=== PATIENT | male | born 1985 | race Two or more races ===

== ENCOUNTER 2021-07-19 15:04 | Inpatient (IN) | payer OTHER ==
[~2021-07-19] VITALS: Ht 172.7 cm; Wt 94.1 kg
[2021-07-19 15:43] LABS: BASOPHILS ABSOLUTE AUTO 0.04 K/mm3 (0.00-0.23); BASOPHILS PERCENT AUTO 1 % (0-2); EOSINOPHILS ABSOLUTE AUTO 0.01 K/mm3 (0.00-0.68); EOSINOPHILS PERCENT AUTO 0 % (0-6); Hematocrit 41.9 % (37.0-53.0); Hemoglobin 14.3 g/dL (13.5-17.5); IMMATURE GRAN ABSOLUTE AUTO 0.35 K/mm3 (0.00-0.10); IMMATURE GRAN PERCENT AUTO 4 % (0-1); LYMPHOCYTES ABSOLUTE AUTO 0.59 K/mm3 (0.84-5.20); LYMPHOCYTES PERCENT AUTO 7 % (21-46); MONOCYTES ABSOLUTE AUTO 0.47 K/mm3 (0.16-1.47); MONOCYTES PERCENT AUTO 6 % (4-13); Mean Corpuscular HGB 30.4 pg (26.0-34.0); Mean Corpuscular HGB Conc 34.1 g/dL (31.5-36.5); Mean Corpuscular Volume 89 fL (80-100); Mean Platelet Volume 9.1 fL (9.1-12.4); NEUTROPHILS ABSOLUTE AUTO 6.95 K/mm3 (1.96-9.15); NEUTROPHILS PERCENT AUTO 83 % (41-73); Platelet Count 325 K/mm3 (150-400); RDW Coefficient Variation 12.5 % (11.7-14.2); RDW Standard Deviation 40.6 fL (35.1-46.3); Red Blood Cell Count 4.71 M/mm3 (4.30-5.90); White Blood Cell Count 8.41 K/mm3 (4.00-11.30)
[2021-07-19 16:00] LABS: Alanine Aminotransfer (ALT/SGP 41 U/L (12-78); Albumin, Blood 2.2 g/dL (3.4-5.0); Albumin/Globulin Ratio 0.5 (0.8-1.8); Alk Phos 87 U/L (50-136); Anion Gap 6 mmol/L (6-16); Aspartate Aminotrans (AST/SGOT 61 U/L (12-37); Bilirubin, Total 0.8 mg/dL (0.1-1.0); Blood Urea Nitrogen 10 mg/dL (8-24); Bun/Creatinine Ratio 13.2 (12.0-20.0); CO2, Blood 27 mmol/L (21-32); Calcium, Blood 8.3 mg/dL (8.5-10.1); Chloride, Blood 103 mmol/L (98-108); Creatinine, Blood 0.76 mg/dL (0.60-1.20); Globulin, Blood 4.6 g/dL (2.2-4.0); Glomerular Filtration Rate >60 (60-); Glucose, Blood 93 mg/dL (70-99); Potassium, Blood 3.7 mmol/L (3.5-5.5); Sodium, Blood 136 mmol/L (136-145); Total Protein, Blood 6.8 g/dL (6.4-8.2)
[2021-07-19 16:32] LABS: SARS-Cov-2 (COVID-19) PCR, MMC POSITIVE (NEGATIVE)
--- NOTE | 2021-07-20 02:52 | NUR ---
PT IS ON 5L NC WITH SAT OF 83-84, HEAD OF BED ELEVATED, O2 TURNED UP TO 8LNC SAT UP TO 86%. TURNED UP TO 10 L NC SAT UP TO 86%. NO COMP-LAINTS OF SOB, RESPIRATION CURRENTLY AT 20. CALLED RT TO EVAL PATITIENT. PT SWITCHED TO NON REBREATHER WHILE WE AWAIT RT. O2 SAT NOW UP TO 91 %
[2021-07-20 04:39] LABS: BASOPHILS ABSOLUTE AUTO 0.03 K/mm3 (0.00-0.23); BASOPHILS PERCENT AUTO 1 % (0-2); EOSINOPHILS PERCENT AUTO 0 % (0-6); Hematocrit 39.5 % (37.0-53.0); Hemoglobin 13.5 g/dL (13.5-17.5); Mean Corpuscular HGB Conc 34.2 g/dL (31.5-36.5); Mean Corpuscular Volume 88 fL (80-100); Platelet Count 344 K/mm3 (150-400); RDW Coefficient Variation 12.6 % (11.7-14.2); White Blood Cell Count 5.14 K/mm3 (4.00-11.30)
[2021-07-20 04:48] LABS: IMMATURE GRAN ABSOLUTE AUTO 0.25 K/mm3 (0.00-0.10); IMMATURE GRAN PERCENT AUTO 5 % (0-1); LYMPHOCYTES ABSOLUTE AUTO 0.54 K/mm3 (0.84-5.20); LYMPHOCYTES PERCENT AUTO 11 % (21-46); MONOCYTES ABSOLUTE AUTO 0.39 K/mm3 (0.16-1.47); MONOCYTES PERCENT AUTO 8 % (4-13); NEUTROPHILS ABSOLUTE AUTO 3.93 K/mm3 (1.96-9.15); NEUTROPHILS PERCENT AUTO 76 % (41-73)
[2021-07-20 04:56] LABS: Alanine Aminotransfer (ALT/SGP 40 U/L (12-78); Albumin, Blood 1.9 g/dL (3.4-5.0); Albumin/Globulin Ratio 0.4 (0.8-1.8); Alk Phos 88 U/L (50-136); Anion Gap 6 mmol/L (6-16); Aspartate Aminotrans (AST/SGOT 52 U/L (12-37); Bilirubin, Total 0.7 mg/dL (0.1-1.0); Blood Urea Nitrogen 14 mg/dL (8-24); Bun/Creatinine Ratio 17.8 (12.0-20.0); CO2, Blood 26 mmol/L (21-32); Calcium, Blood 8.3 mg/dL (8.5-10.1); Chloride, Blood 107 mmol/L (98-108); Creatinine, Blood 0.79 mg/dL (0.60-1.20); Globulin, Blood 4.4 g/dL (2.2-4.0); Glomerular Filtration Rate >60 (60-); Glucose, Blood 127 mg/dL (70-99); Potassium, Blood 4.3 mmol/L (3.5-5.5); Sodium, Blood 139 mmol/L (136-145); Total Protein, Blood 6.3 g/dL (6.4-8.2)
[2021-07-20 05:50] LABS: BAND PERCENT MAN 2 % (0-8); BASOPHILS PERCENT MAN 0 % (0-2); EOSINOPHILS PERCENT MAN 0 % (0-6); LYMPHOCYTES ABSOLUTE MAN 0.41 K/mm3 (0.84-5.20); LYMPHOCYTES PERCENT MAN 8 % (21-46); MONOCYTES ABSOLUTE MAN 0.15 K/mm3 (0.16-1.47); MONOCYTES PERCENT MAN 3 % (4-13); MYELOCYTE PERCENT MAN 2 % (0-0); NEUTROPHILS ABSOLUTE MAN 4.47 K/mm3 (1.96-9.15); SEG NEUTROPHILS PERCENT MAN 85 % (41-73); TOTAL CELLS COUNTED 100
--- NOTE | 2021-07-20 05:50 | NUR ---
VSS, NO COMPLAINTS OF PAIN. PT IS A+O X 4, ABLE TO VERBALIZE NEEDS. SOB WITH MINIMAL ACTIVITY.PT WAS ON 5L NC. WHEN TECH WAS DOING AM VITALS, LINEN WORKER WAS ALERTED THAT O2 WAS 83%. PT O2 INCREASED TO 10L NC AND LINEN WORKER CALLED RT DEPT. O2 SAT WAS STILL BELOW 90%. INCREASED TO 15L NC WITH O2@ 86 %. PT PLACED ON NON-REABREATHER UNTIL SEEN BY RT. PT PLACED ON AIRVO 30L 70% WITH CONT PULSE OX. NO OTHER ISSUES IDENTIFIED. SAFETY MEAURES IN PLACE WILL CONTINUE TO MONITOR UNTIL REPORT IS GIVEN TO DAY RN
--- NOTE | 2021-07-20 17:08 | NUR ---
PT IS A/OX3, PLEASANT AND COOPERATIVE. THE PT IS SOB WITH MINIMAL ACTIVITY. PT IS ON AIRVO SETTING AT 30/90% SAT'S RANGE FROM 87-94%, THE PT DENIES ANY PAIN AT THIS TIME. PT HAS BEEN IN BED T/O THE FRAN DUER TO HIS SOB. CALL OIGHT IN REACH. WILL CONTINUE TO MONITOR FOR CHANGES
--- NOTE | 2021-07-21 04:29 | NUR ---
SHIFT SUMMARY PT IS A 36 Y/O MALE, ADMITTED FOR PNA R/T COVID-19. HE IS A&O X 4, BEDREST D/T DESATTING WITH ANY ACTIVITY. HE IS ON AIRVO, O2 INCREASED FROM 30L/80% TO 45L/85%, SATTING BETWEEN 89-92% AND DESATS DOWN TO 80-85% WITH ANY EXERTION. ALL OTHER VITALS STABLE. PT DID REPORT ANXIETY AT START OF SHIFT. AFTER INFORMING HOSPITALIST DR RODRIGUEZ, PO ATIVAN ORDERED AND ADMINISTERED. NO C/O ACUTE PAIN OR NAUSEA. NO OTHER ACUTE CHANGES IN PT CONDITION NOTED DURING THE NIGHT. WILL CONTINUE TO MONITOR AND TREAT PER EMAR UNTIL HAND OFF TO DAY SHIFT RN.
--- NOTE | 2021-07-21 17:18 | NUR ---
SHIFT SUMMARY PATIENT DENIES PAIN AND NAUSEA. DYSPNEIC WITH ACTIVITY. AIRVO AT 40L/50% TO MAINTAIN OXYGEN SATURATION ABOVE 90%. PATIENT PRONING WHEN NOT EATING. UP SBA TO BSC/URINAL AT BEDSIDE. PLEASANT AND COOPERATIVE WITH CARE.
--- NOTE | 2021-07-22 03:23 | NUR ---
SHIFT SUMMARY A/OX4, PLEASANT AND COOPERATIVE WITH CARE. CURRENTLY ON AIRVO 40L FIO2 50% SOB WITH EXERTION. CONT. BIOX IN PLACE WITH SATS GREATER THAN 92. ENCOURAGED PRONING T/O THE NIGHT. VSS, NO ACUTE CHANGES AT THIS TIME. BED IN LOWEST POSITION WITH CALL LIGHT IN REACH. WILL CONTINUE TO MONITOR AND REPORT TO ONCOMING RN.
[2021-07-22 04:35] LABS: BASOPHILS ABSOLUTE AUTO 0.04 K/mm3 (0.00-0.23); BASOPHILS PERCENT AUTO 0 % (0-2); EOSINOPHILS ABSOLUTE AUTO 0.01 K/mm3 (0.00-0.68); EOSINOPHILS PERCENT AUTO 0 % (0-6); Hematocrit 40.1 % (37.0-53.0); Hemoglobin 13.6 g/dL (13.5-17.5); Mean Corpuscular HGB Conc 33.9 g/dL (31.5-36.5); Mean Corpuscular Volume 89 fL (80-100); Mean Platelet Volume 8.9 fL (9.1-12.4); NRBC ABSOLUTE 0.02 K/mm3 (0.00-0.02); NRBC Auto 0.2 /100 WBC (0.0-0.2); Platelet Count 332 K/mm3 (150-400); RDW Coefficient Variation 12.4 % (11.7-14.2); RDW Standard Deviation 40.5 fL (35.1-46.3); Red Blood Cell Count 4.53 M/mm3 (4.30-5.90); White Blood Cell Count 10.65 K/mm3 (4.00-11.30)
[2021-07-22 04:36] LABS: IMMATURE GRAN ABSOLUTE AUTO 0.58 K/mm3 (0.00-0.10); IMMATURE GRAN PERCENT AUTO 5 % (0-1); LYMPHOCYTES ABSOLUTE AUTO 1.58 K/mm3 (0.84-5.20); LYMPHOCYTES PERCENT AUTO 15 % (21-46); MONOCYTES ABSOLUTE AUTO 1.06 K/mm3 (0.16-1.47); MONOCYTES PERCENT AUTO 10 % (4-13); NEUTROPHILS ABSOLUTE AUTO 7.38 K/mm3 (1.96-9.15); NEUTROPHILS PERCENT AUTO 69 % (41-73)
[2021-07-22 04:56] LABS: Albumin, Blood 2.1 g/dL (3.4-5.0); Anion Gap 4 mmol/L (6-16); Blood Urea Nitrogen 20 mg/dL (8-24); Bun/Creatinine Ratio 22.6 (12.0-20.0); CO2, Blood 27 mmol/L (21-32); Calcium, Blood 8.3 mg/dL (8.5-10.1); Chloride, Blood 107 mmol/L (98-108); Creatinine, Blood 0.89 mg/dL (0.60-1.20); Glomerular Filtration Rate >60 (60-); Glucose, Blood 98 mg/dL (70-99); Sodium, Blood 138 mmol/L (136-145)
[2021-07-22 05:11] LABS: BAND PERCENT MAN 2 % (0-8); BASOPHILS PERCENT MAN 0 % (0-2); EOSINOPHILS PERCENT MAN 1 % (0-6); LYMPHOCYTES ABSOLUTE MAN 0.95 K/mm3 (0.84-5.20); LYMPHOCYTES PERCENT MAN 9 % (21-46); MONOCYTES ABSOLUTE MAN 0.95 K/mm3 (0.16-1.47); MONOCYTES PERCENT MAN 9 % (4-13); NEUTROPHILS ABSOLUTE MAN 8.62 K/mm3 (1.96-9.15); SEG NEUTROPHILS PERCENT MAN 79 % (41-73); TOTAL CELLS COUNTED 100
[2021-07-22 10:09] LABS: C-REACTIVE PROTEIN, EXT RANGE 3.01 mg/dL (0.000-0.300)
--- NOTE | 2021-07-22 16:57 | NUR ---
SHIFT SUMMARY PT SATING IN THE 90S T/O THE DAY. PRIMARILY ABOVE 94%. REQUIRING THE AIRVO WITH 40L 50%. PT STATES SOB ONLY WITH EXERTION. PT AGREEABLE TO LYING PRONE AND DID SO FOR A FEW HOURS TODAY. PT HAD NOT GOTTEN OUT OF BED TODAY, MOVING INDEPENDENTLY IN BED. PT MOTHER UPDATED TODAY WITH PERMISSION. NO OTHER ACUTE CHANGES IN ASSESSMENT AT THIS TIME. VS REVIEWED. CALL LIGHT IN REACH. DENIES OTHER NEEDS AT THIS TIME. RESTING IN BED, WATCHING TV.
--- NOTE | 2021-07-23 06:14 | NUR ---
SUMMARY NO NEW CHANGES NOTED. PT SLEPT T/O SHIFT. CALL LIGHT IN REQACH.
[2021-07-23 06:29] LABS: BASOPHILS ABSOLUTE AUTO 0.08 K/mm3 (0.00-0.23); BASOPHILS PERCENT AUTO 1 % (0-2); EOSINOPHILS ABSOLUTE AUTO 0.06 K/mm3 (0.00-0.68); EOSINOPHILS PERCENT AUTO 1 % (0-6); Hematocrit 42.4 % (37.0-53.0); Hemoglobin 14.3 g/dL (13.5-17.5); Mean Corpuscular HGB 29.9 pg (26.0-34.0); Mean Corpuscular HGB Conc 33.7 g/dL (31.5-36.5); Mean Corpuscular Volume 89 fL (80-100); Mean Platelet Volume 9.4 fL (9.1-12.4); Platelet Count 377 K/mm3 (150-400); RDW Coefficient Variation 12.2 % (11.7-14.2); RDW Standard Deviation 39.1 fL (35.1-46.3); Red Blood Cell Count 4.79 M/mm3 (4.30-5.90); White Blood Cell Count 9.38 K/mm3 (4.00-11.30)
[2021-07-23 06:53] LABS: IMMATURE GRAN ABSOLUTE AUTO 0.69 K/mm3 (0.00-0.10); IMMATURE GRAN PERCENT AUTO 7 % (0-1); LYMPHOCYTES ABSOLUTE AUTO 2.09 K/mm3 (0.84-5.20); LYMPHOCYTES PERCENT AUTO 22 % (21-46); MONOCYTES ABSOLUTE AUTO 1.09 K/mm3 (0.16-1.47); MONOCYTES PERCENT AUTO 12 % (4-13); NEUTROPHILS ABSOLUTE AUTO 5.37 K/mm3 (1.96-9.15); NEUTROPHILS PERCENT AUTO 57 % (41-73)
[2021-07-23 06:54] LABS: Anion Gap 4 mmol/L (6-16); Blood Urea Nitrogen 19 mg/dL (8-24); Bun/Creatinine Ratio 21.6 (12.0-20.0); CO2, Blood 27 mmol/L (21-32); Calcium, Blood 8.3 mg/dL (8.5-10.1); Chloride, Blood 107 mmol/L (98-108); Creatinine, Blood 0.88 mg/dL (0.60-1.20); Glomerular Filtration Rate >60 (60-); Glucose, Blood 87 mg/dL (70-99); Potassium, Blood 4.1 mmol/L (3.5-5.5); Sodium, Blood 138 mmol/L (136-145)
--- NOTE | 2021-07-23 17:38 | NUR ---
PATIENT IS ALERT AND ORIENTED AND COOPERATIVE WITH CARE. RT TITRATED HIS OXYGEN DOWN TO 4OL AND 40% FIO2 VIA AIRVO. USES THE URINAL AND BSC INDEPENDENTLY. NO C/O PAIN. NO NEW CONCERNS THIS SHIFT. WILL CONTINUE TO MONITOR
--- NOTE | 2021-07-24 03:56 | NUR ---
SHIFT SUMMARY PT ADMITTED FOR PNA/COVID. CURRENT AIRVO SETTINGS 40LPM/40% FIO2. SANIYA IS INDEPENDENT IN ROOM WITH BSC AND URINAL. 20G IV IS SALINE LOCKED IN LEFT WRIST. LOVENOX FOR DVT PROPH. VSS, PT IS PLEASANT WITH STAFF. NO ACUTE CHANGES.
--- NOTE | 2021-07-24 19:07 | NUR ---
PT ALERT ORIENTED X 4.PT LUNGS DIMINISHED THROUGHOUT.PT ON 3L NC HUMIDIFIER, PT DENIES PAIN,N/V,SOB.PT INDEP IN THE ROOM.PT IN BED, ENCOURAGE TO PRONE, CALL LIGTH IN REACH WILL CONTINUE TO MONITOR.
--- NOTE | 2021-07-25 04:15 | NUR ---
PT with covid 19 continues to make progress with decreased oxygen needs. He is weaned to 3 l high flow nasal cannula. Lung sounds diminished.
[2021-07-25] MEDS ORDERED: XARELTO20 MG PO (11:48)
[2021-07-25] MEDS ORDERED: DEXA6 PO (11:49)
--- NOTE | 2021-07-25 16:16 | NUR ---
PT ALERT ORIENTED X 4,PT ON ROOM AIR SATS IN 90S.PT HAS NO ACUTE CHANGES T/O SHIFT.PT INDEP.PT DISCHARGE HOME WITH ALL BELONGINGS.PT VERBALIZED UNDERSTANDINNG ABOUT THE DISCHARGE.
== END 2021-07-25 14:43 | disposition home or self-care (01) | DRG 177 ==
LOC: ER 15:04 → MEDS 17:47 → ERHOLD 17:47 → MEDS 20:28
PROVIDERS: Family Medicine; Internal Medicine; Physician Assistant; ADMIT Hospitalist
PROC: 8E0ZXY6 Isolation (ICD-10-PCS; principal; 2021-07-19)
PROC: 3E02340 Introduction of Influenza Vaccine into Muscle, Percutaneous Approach (ICD-10-PCS; 2021-07-19)
PROC: 3E0333Z Introduction of Anti-inflammatory into Peripheral Vein, Percutaneous Approach (ICD-10-PCS; 2021-07-20)
PROC: XW033E5 Introduction of Remdesivir Anti-infective into Peripheral Vein, Percutaneous Approach, New Technology Group 5 (ICD-10-PCS; 2021-07-20)
PROC: XW0DXM6 Introduction of Baricitinib into Mouth and Pharynx, External Approach, New Technology Group 6 (ICD-10-PCS; 2021-07-22)
DX: U07.1 COVID-19 (principal); J96.01 Acute respiratory failure with hypoxia; I26.99 Other pulmonary embolism without acute cor pulmonale; J12.82 Pneumonia due to coronavirus disease 2019; Z23 Encounter for immunization; F41.9 Anxiety disorder, unspecified
CPT/HCPCS: 36415; 71045; 71260; 80048; 80053; 80069; 83605; 83615; 84145; 85025; 85379; 86140; 93005; 93010; 94762; 96374; 96375; 99285-25; A9270; J0696; J1100; J1650; J1885; J7030; Q9967; U0004